=== PATIENT | male | born 1965 | race Caucasian/White ===

== ENCOUNTER 2018-06-10 15:34 | Emergency (ER) | payer BC ==
[2018-06-10] MEDS: PHENYLEPHRINE 0.5% NASAL SPRAY 15 ML (16:20)
== END 2018-06-10 17:35 | disposition home or self-care (01) ==
LOC: M ED 15:34
DX: R04.0 Epistaxis (principal); I10 Essential (primary) hypertension; Z79.899 Other long term (current) drug therapy; Z88.8 Allergy status to other drugs, medicaments and biological substances
CPT/HCPCS: 99282